=== PATIENT | female | born 1965 | race Caucasian/White ===

== ENCOUNTER 2020-10-02 14:18 | Day surgery (SDC) | payer BC ==
[2020-10-02] MEDS ORDERED: Depo-Medrol 40 MG/ML IM ONE (14:19)
[2020-10-02] MEDS ORDERED: BUPIVACAINE 0.5% VIAL IJ ONE (14:19)
[2020-10-02] MEDS ORDERED: Lactated Ringers 1,000 ML IV ONE (14:58)
--- NOTE | 2020-10-02 16:57 | XRAY ---
Indication: Right SI joint injection. Intraoperative fluoroscopy provided for 9 seconds. 2 digital spot images submitted for interpretation demonstrates posterior needle tip projecting over the inferior right SI joint. Correlate with intraoperative findings/report.
--- NOTE | 2020-10-02 17:02 | XRAY ---
9 seconds fluoroscopy time in surgery for injection of the right SI joint.
== END 2020-10-02 16:50 | disposition home or self-care (01) ==
LOC: SDC-PAIN 14:18
PROVIDERS: ATTEND Psychiatry & Neurology Pain Medicine
DX: M46.1 Sacroiliitis, not elsewhere classified (principal); Z79.899 Other long term (current) drug therapy
CPT/HCPCS: 27096; 72020; 77002; J1030; G0260